=== PATIENT | female | born 1955 | race Caucasian/White ===

== ENCOUNTER 2020-10-11 11:41 | Emergency (ER) | payer MEDICARE, OTHER ==
[~2020-10-11] VITALS: Ht 162.6 cm; Wt 72.6 kg
--- OUTSIDE RECORDS SUMMARY | 2020-10-11 11:44 | XMS ---
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 ERadha VISIT COUNT (12 MO.) 1 [facility] Goyal TOTAL 1 NOTE: Visits indicate total known visits. ED/UCC VISIT TRACKING (12 MO.) 10/11/2020 11:42 [facility] [place] TYPE: Emergency COMPLAINT: - FLU SYMPTOMS INPATIENT VISIT TRACKING (12 MO.) No inpatient visits to display in this time frame [email or web address]
[2020-10-11] MEDS ORDERED: FLUTICASONE PRO16 GM NAS (13:56)
== END 2020-10-11 14:00 | disposition home or self-care (01) ==
LOC: ED 11:41
DX: U07.1 COVID-19 (principal); Z88.2 Allergy status to sulfonamides
CPT/HCPCS: 99283

== ENCOUNTER 2020-10-13 11:42 | Emergency (ER) | payer MEDICARE, OTHER ==
[~2020-10-13] VITALS: Ht 162.6 cm; Wt 72.6 kg
[~2020-10-13 11:42] MED LIST: FLUTICASONE PRO16 GM NAS
--- OUTSIDE RECORDS SUMMARY | 2020-10-13 11:44 | XMS ---
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 Sohan VISIT COUNT (12 MO.) 2 [facility] TOTAL 2 NOTE: Visits indicate total known visits. ED/UCC VISIT TRACKING (12 MO.) 10/13/2020 11:[address] [facility] [place] TYPE: Emergency COMPLAINT: - HEADACHE,NOT FEELING WELL 10/11/2020 11:42 [facility] OR TYPE: Emergency COMPLAINT: - FLU SYMPTOMS INPATIENT VISIT TRACKING (12 MO.) No inpatient visits to display in this time frame [email or web address]
== END 2020-10-13 14:01 | disposition home or self-care (01) ==
LOC: ED 11:42
DX: U07.1 COVID-19 (principal); Z88.2 Allergy status to sulfonamides
CPT/HCPCS: 99283-25; M0243; Q0244

== ENCOUNTER 2024-01-01 05:45 | Day surgery (SDC) | payer OTHER, MEDICARE ==
[~2024-01-01] VITALS: Ht 160 cm; Wt 64.5 kg
[~2024-01-01 05:45] MED LIST changes: +CELEXA40 MG PO; +FISH OIL 1,2001 EACH PO; +FOSAMAX70 MG PO; +GLYCOTROL CAPS1 EACH PO; +KETOCONAZOLE15 GM TOP; +LACTATED RINGER'S 1,000 ML IV SCH; +MULTI VITAMIN1 EACH PO; +OSTERA TABLET1 EACH PO; +OXYBUTYNIN CHLOR5 M1 PO; +PROBIOTIC1 EAC8 PO; +SUDOGEST30 MG PO; +VITAMIN K100 MCG PO; +ZANAFLEX2 M1 PO
[2024-01-01 06:05] VITALS: BP 119/58
[2024-01-01] MEDS ORDERED: KETOROLAC TROMETHAMINE 30 MG/ML VIAL ONE ×2 (06:09→06:50)
[2024-01-01] MEDS ORDERED: ondansetron HCL 4 MG/2 ML VIAL ONE (06:50)
[2024-01-01] MEDS ORDERED: ACETAMINOPHEN 1,000 MG/100 ML VIAL ONE (06:50)
[2024-01-01] MEDS ORDERED: dexmedeTOMIDine HCl 200 MCG/2 ML VIAL ONE (06:50)
[2024-01-01] MEDS ORDERED: propofoL 200 MG/20 ML VIAL ONE ×2 (06:50→06:59)
[2024-01-01] MEDS ORDERED: fentaNYL citrate 100 MCG/2 ML VIAL ONE (06:50)
[2024-01-01] MEDS ORDERED: DEXAMETHASONE SOD PHOS 4 MG/ML VIAL ONE (06:50)
[2024-01-01] MEDS ORDERED: KETAMINE in NS 50 MG/5 ML SYR ONE (06:50)
[2024-01-01] MEDS ORDERED: SCOPOLAMINE 1 MG/3 DAYS PATCH 1 EACH TDSY ONE (06:59)
[2024-01-01] MEDS ORDERED: IBLOOD GLUCOSE TEST STRIP 1 EA TEST VI PRN ×2 (07:00→07:30)
[2024-01-01] MEDS ORDERED: CEFAZOLIN SODIUM 2 GM/20 ML SYR IV SCH (07:00)
[2024-01-01] MEDS ORDERED: HYDROCODONE/ACETA 5/325 TAB PO PRN (07:00)
[2024-01-01] MEDS ORDERED: LIDOCAINE HCL 1% 5 ML SDV INJ ONE (07:00)
[2024-01-01] MEDS ORDERED: TRANEXAMIC ACID 2,000 MG in SODIUM CHLORIDE 0.9% 100 ML IV SCH (07:00)
[2024-01-01] MEDS ORDERED: KETOROLAC TROMETHAMINE 15 MG/ML VIAL IV PRN (07:00)
[2024-01-01] MEDS ORDERED: ondansetron HCL 4 MG/2 ML VIAL IV PRN (07:30)
[2024-01-01] MEDS ORDERED: NALOXONE HCL 0.4 MG SYR IV PRN (07:30)
[2024-01-01] MEDS ORDERED: fentaNYL citrate 50 MCG/ML SDV IV PRN (07:30)
[2024-01-01] MEDS ORDERED: droPERidol 5 MG/2 ML VIAL IV PRN (07:30)
[2024-01-01] MEDS ORDERED: HYDROCODON-ACE1 EA10 PO (07:32)
[2024-01-01] MEDS ORDERED: DICLOFENAC SODI75 MG PO (07:32)
--- NOTE | 2024-01-01 07:50 | NUR ---
01/01/24 0750 Justin,Lillian 0751 PT ARRIVED TO PACU, RESP RATE DECREASED WITH PERIODS OF APNEA. PT DEEP BREATHING WITH TACTILE STIMULI. 0739 O2 REMOVED, PT DENEIS PAIN AND NAUSEA. PT EYES REMAIN CLOSED AND SHE REPORTS "I FEEL SO GOOD." RN ENCOURAGES DEEP BREATHING OFF AND ON. PT EASILY FALLS BACK TO SLEEP. 0749 PT OPENED HER EYES AND CONTINUES TO DENY PAIN OR NAUSEA. ICE PLACED ON LEFT KNEE. RESP EVEN AND UNLABORED.
[2024-01-01 08:16] VITALS: BP 108/53
--- NOTE | 2024-01-01 08:19 | NUR ---
AMANDA 0815: PT IS BACK TO DS FROM PACU. AT THE BEDSIDE. CALL LIGHT WITHIN REACH. SHE IS SIPPING ON WATER AND COFFEE. SHE WOULD LIKE TO SNACK ON SALTINES. NO ADDITIONAL NEEDS OR CONCERNS. DC CRITERIA RE-REVIEWED WITH PT AND FAMILY.
[2024-01-01] MEDS ORDERED: DICLOFENAC SOD 75 MG TABEC PO SCH (09:00)
--- NOTE | 2024-01-01 09:09 | OR ---
[facility] [address], [place] [address] Signed DATE OF OPERATION: 01/01/2024 SURGEON: Buffy Mccann MD PREOPERATIVE DIAGNOSIS: Medial meniscus tear, left knee POSTOPERATIVE DIAGNOSIS: Medial meniscus tear, left knee PROCEDURE PERFORMED: Left knee arthroscopy with partial medial meniscectomy. ROLLER OPERATOR: None. ANESTHESIA: General. BLOOD LOSS: Minimal. BRIEF HISTORY: Siena is a 68-year-old female with progressive worsening OF pain and instability in her knee. She had an MRI which was consistent with the meniscus tear. Risks and benefits of operative treatment were discussed with her. Once consent was obtained, she was taken to the operating room. After adequate anesthesia, she was placed on the operating room table. The right leg was flexed, abducted and externally rotated on a well-padded leg miner. The left was placed in a well-padded proximal thigh leg miner with no tourniquet. The leg was then prepped and draped in a standard sterile fashion. Portal sites were injected with 0.25% Marcaine with epinephrine. The standard inferolateral and superolateral portals were made. The scope was introduced into the knee. 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 The trochlea was pretty much intact with grade 3 chondromalacia. Medial and lateral gutters were clear. ACL was intact. Lateral compartment was intact with diffuse areas of grade 2 chondromalacia. The medial compartment showed diffuse grade 3 to small areas of grade 4 chondromalacia as did the tibia. This is a complex meniscus tear. Electronically Signed By: BUFFY MCCANN MD 01/01/24 0909 PATIENT NAME: SIENA BAUGH OPERATIVE REPORT DATE OF : 55 REPORT #: [id number] PHYSICIAN: BUFFY MCCANN MD PCP: OTHER PCP REPORT IS CONFIDENTIAL AND NOT TO BE RELEASED WITHOUT AUTHORIZATION [facility] [address], [place] [address] Signed DESCRIPTION OF OPERATION: Standard inferomedial portal was established after localization using a spinal needle. Straight and curved biters were used to trim the meniscus tear back to a stable rim. The remaining meniscus was then smoothed using the shaver and the debris was evacuated. The chondral flaps on the femur were then debrided and the scope was withdrawn. Portals were closed with 3-0 nylon and dressed with Adaptic, ABD and Ari wrap. The knee was injected with 60 mg of Toradol at the end of the case. She tolerated the procedure well. All sponge, needle, and instrument counts were correct. Buffy Mccann MD BA/CLARKEL /[id number] Copies: ~ Electronically Signed By: BUFFY MCCANN MD 01/01/24 0909 PATIENT NAME: SIENA BAUGH OPERATIVE REPORT DATE OF : 55 REPORT #: [id number] PHYSICIAN: BUFFY MCCANN MD PCP: OTHER PCP REPORT IS CONFIDENTIAL AND NOT TO BE RELEASED WITHOUT AUTHORIZATION
[2024-01-01 09:13] VITALS: BP 109/53
--- NOTE | 2024-01-01 09:15 | NUR ---
PT IS TOLERATING WATER, COFFEE, AND CRACKERS. NO MAJOR COMPLAINTS OF PAIN. REMAINS AT THE BEDSIDE. PT WOULD LIKE TO GET UP AND USE THE RESTROOM.
--- NOTE | 2024-01-01 09:47 | NUR ---
LE 0916: PT IS ASSISTED UP OOB, SHE AMBUALTES HERSELF TO THE BATHROOM, TOLERATING WEIGHT ON THAT LEFT KNEE. LE 0923: PT IS IS ABLE TO VOID QS. SHE AMBUALTES HERSELF BACK TO HER ROOM AND INDICATES THAT SHE WOULD LIKE TO GO HOME SHE HAS MET ALL DC CRITERIA. SHE IS EDUCATED ON HOW TO BEST DRESS HERSELF AND TO OPEN HER CURTAIN WHEN READY. LE 0933: PT AND ARE GIVEN WRITTEN AND VERBAL DC INSTRUCTIONS. THEY BOTH VERBALIZE UNDERSTANDING. NO QUESTIONS AT THIS TIME. LE 0935: PT IS DC'D HOME VIA WC, AND TAKEN TO PERSONAL VEHICLE.
== END 2024-01-01 09:35 | disposition home or self-care (01) ==
LOC: DS 05:45
PROVIDERS: ATTEND Specialist
PROC: 0SBD4ZZ Excision of Left Knee Joint, Percutaneous Endoscopic Approach (ICD-10-PCS; principal; 2024-01-01 07:00)
DX: S83.232A Complex tear of medial meniscus, current injury, left knee, initial encounter (principal); M94.262 Chondromalacia, left knee; F32.A Depression, unspecified; Z79.899 Other long term (current) drug therapy; X58.XXXA Exposure to other specified factors, initial encounter
CPT/HCPCS: 01400; J0131; J0690; J1100; J1885; J2405; J2704; J3010; J3490; J7121